=== PATIENT | female | born 1980 | race Hispanic/Latino ===

== ENCOUNTER 2019-03-20 17:53 | Inpatient (IN) ==
[2019-03-20] MEDS ORDERED: STADOL IV PRN ×2 (18:02)
[2019-03-20] MEDS: LR 1,000 ML IV SCH (19:45)
[2019-03-20 20:23] LABS: BASO# 0.02 X1000 (0.0-0.2); BASO% 0.2 % (0.0-0.8); EOS# 0.34 X1000 (0.0-0.7); EOS% 2.8 % (0.0-10.0); HEMATOCRIT 41.8 % (37.0-47.0); IMM GRAN# 0.04 X1000 (0.0-0.04); IMM GRAN% 0.3 % (0.0-0.5); LYMPH# 3.59 X1000 (1.2-3.4); LYMPH% 29.5 % (20.5-51.1); MCH 32.5 PG (27-31); MCHC 33.5 g/dL (33-37); MONO# 0.64 X1000 (0.11-0.59); MONO% 5.3 % (1.7-9.3); MPV 10.5 FL (7.4-10.4); NEUT# 7.54 X1000 (1.4-6.5); NEUT% 61.9 % (42.2-75.2); PLT 280 X1000 (130-400); RBC 4.31 XMIL (4.2-5.4); RDW 12.6 % (11.5-14.5); WBC 12.17 X1000 (4.8-10.8)
[2019-03-20 20:47] LABS: AGAP 17; ALKALINE PHOSPHATASE 109 U/L (32-104); BUN 10 mg/dL (8-22); CALCIUM 10.7 mg/dL (8.8-10.2); CHLORIDE 99 mmol/L (98-107); COSMO 284; CREATININE 0.5 mg/dL (0.5-0.9); ESTIMATED GFR > 60; GLUCOSE 229 mg/dL (70-104); GOT 82 U/L (10-30); GPT 67 U/L (10-36); POTASSIUM 3.9 mmol/L (3.5-5.1); SODIUM 139 mmol/L (136-145); TCO2 24 mmol/L (25-35); TOTAL PROTEIN 8.7 g/dL (6.3-8.3)
[2019-03-20] MEDS ORDERED: TRANDATE PO SCH (21:00)
[2019-03-20] MEDS ORDERED: CYTOTEC VAG SCH (21:00)
[2019-03-20] MEDS ORDERED: GLUCOPHAGE PO ONE (21:30)
[2019-03-20] MEDS ORDERED: HUMALOG (PARKWAY) SUBQ ONE ×2 (21:31→21:35)
[2019-03-20] MEDS ORDERED: LANTUS INSULIN SUBQ ONE (21:55)
[2019-03-20] MEDS: CYTOTEC VAG SCH (22:04)
[2019-03-20] MEDS: TRESIBA FLEXTOUCH U-100 SUBQ SCH (22:34)
--- NOTE | 2019-03-21 04:02 | HISTORY AND PHYSICAL ---
HISTORY OF PRESENT ILLNESS: A 38-year-old, -0-1-2 at 16 weeks by 8 week 5 day ultrasound, admitted for a missed AB. This is a patient of Dr. Rodriguez that was admitted due to a formal ultrasound done in the clinic with findings of no cardiac activity noted on 03/19/2019. The patient denied of any vaginal bleeding or leakage of fluid. The patient does report of some cramping and some nausea early in the day, that has subsequently resolved. The patient has a history significant of type 2 diabetes and is currently on metformin 1000 b.i.d. and degludec 20 units daily. She also has history of hypertension, in which she is taking labetalol 100 mg b.i.d. The patient reports taking lisinopril daily prior to . PAST MEDICAL HISTORY: 1. Diabetes mellitus. 2. Hypertension. PAST SURGICAL HISTORY: 1. section x2. 2. Open left oophorectomy for "ovarian cyst." 3. D and C (per records). OBSTETRICAL HISTORY: SAB x1. History of x2, both term deliveries. First at 39 weeks, 9 pounds 9 ounces female. Second at 40 weeks, 11 pounds 5 ounces female. GYNECOLOGICAL HISTORY: Denied of STDs or HIV. Denies of any abnormal Pap smears. She does not recall the last Pap smear results. SOCIAL HISTORY: Denied of tobacco, illicit drug use, or alcohol use. FAMILY HISTORY: Reports mother has a history of diabetes mellitus. Children, both healthy. Mother . MEDICATIONS: Labetalol 100 b.i.d., vitamin daily, and metformin 1000 mg b.i.d., insulin Degludec 20 units at bedtime. REVIEW OF SYSTEMS: Negative. PHYSICAL EXAMINATION/OBJECTIVE: Vital Signs: Temperature 96.9 degrees, heart rate 83, respirations 18, blood pressure 107/64, weight 83 kg, height 5 feet 4 inches. General: No apparent distress. Cardiovascular: Regular rate and rhythm. Pulmonary: Clear to auscultation bilaterally. Abdomen: Soft, nontender to palpation, and obese. Well healed prior scars. Pelvic: Deferred for now. Extremities: No lower extremity tenderness to palpation. IMAGING: Bedside ultrasound, posterior placenta, fetus in breech presentation. No cardiac activity noted. LABS: RPR nonreactive. Gonorrhea and chlamydia negative. Hep B surface antigen nonreactive. Hep C antibody nonreactive. HIV 1, 2 antibody nonreactive. Rubella immune. Rh positive, antibody screen negative. LABORATORY DATA: White blood cell count 12.17, hemoglobin 14, hematocrit 41.8, and platelet 280,000. Glucose 229, ALT 67, AST 82. Creatinine 0.5, BUN 10. Sodium 139, potassium 3.9, chloride 99. RPR nonreactive. ASSESSMENT AND PLAN: A 38yo at 16 weeks by an 8 week 5 day ultrasound with: 1. Missed . - I discussed the possible management options for a missed , which includes expectant, medical and surgical management. Risks and benefits of each discussed in depth with the patient. I discussed that given her history of 2 prior C-sections, there is a theoretical risk of a possible uterine rupture with medical management, which may require an emergent laparotomy with repair and possible hysterectomy. In addition, there is possibility of failed medical management, which may require subsequent D&C. In regards to surgical management, the risks of dilatation and curettage discussed with the patient, including bleeding, infection, injury to surrounding organs, and need for hysterectomy. The patient expressed understanding. All questions answered. The patient desired for medical management at this time. -Given patient having a history of 2 prior sections, recommend misoprostol dose at 400 mg per vagina q.6 hours, and to monitor for signs or symptoms of possible uterine rupture. -The patient may receive pain medication via IV epidural p.r.n., [employer] p.r.n. -lithographic general worker consultation ordered after delivery of the missed . 2. Diabetes mellitus. -Metformin 1000 mg b.i.d., and degludec 20U QHS ordered. -Patient was treated acutely with 10U Humalog for elevated finger stick glucose. Also, degludec was not available overnight per pharmacy, and therefore patient was given 10U Lantus -AC + HS glucose checks 3. Hypertension. -BP wnl -Will continue labetalol 100 mg b.i.d. 4. Transaminitis -Unclear cause -Hep C ab in non-reactive per records -Limit use of medications that get metabolized in the liver (e.g Tylenol) cc: MD SABRA Pryor III
[2019-03-21] MEDS ORDERED: PITOCIN 30 UNITS/NS 30 UNIT/500 ML IV.SOLN ONE (04:42)
[2019-03-21] MEDS: CYTOTEC VAG SCH (05:35)
[2019-03-21] MEDS ORDERED: HEMABATE ONE (05:40)
[2019-03-21 06:00] LABS: BASO# 0.02 X1000 (0.0-0.2); BASO% 0.2 % (0.0-0.8); EOS# 0.13 X1000 (0.0-0.7); HEMOGLOBIN 11.5 g/dL (12.0-16.0); IMM GRAN# 0.03 X1000 (0.0-0.04); IMM GRAN% 0.2 % (0.0-0.5); LYMPH# 1.98 X1000 (1.2-3.4); LYMPH% 15.1 % (20.5-51.1); MCHC 33.8 g/dL (33-37); MCV 97.7 FL (81-99); MONO# 0.44 X1000 (0.11-0.59); MONO% 3.4 % (1.7-9.3); MPV 10.1 FL (7.4-10.4); NEUT# 10.48 X1000 (1.4-6.5); NEUT% 80.1 % (42.2-75.2); PLT 293 X1000 (130-400); RBC 3.48 XMIL (4.2-5.4); RDW 12.3 % (11.5-14.5); WBC 13.08 X1000 (4.8-10.8)
[2019-03-21] MEDS: LR 1,000 ML IV SCH (06:07)
[2019-03-21] MEDS ORDERED: NS 1,000 ML IV SCH (06:15)
[2019-03-21] MEDS ORDERED: MOTRIN PO PRN (06:36)
[2019-03-21] MEDS ORDERED: MINERAL OIL PO PRN (06:36)
[2019-03-21] MEDS ORDERED: CYTOTEC PO PRN (06:36)
[2019-03-21] MEDS ORDERED: PITOCIN IM PRN (06:36)
[2019-03-21] MEDS ORDERED: XYLOCAINE-MPF 1% INJ PRN (06:36)
[2019-03-21] MEDS ORDERED: BENADRYL PO PRN (06:36)
[2019-03-21] MEDS ORDERED: PERI MEDS (DERMOPLAST/NUPERCAINAL/TUCKS) MISC PRN (06:36)
[2019-03-21] MEDS ORDERED: OXY IR PO PRN (06:38)
[2019-03-21] MEDS ORDERED: COLACE PO PRN (06:38)
[2019-03-21] MEDS ORDERED: HUMALOG (PARKWAY) SUBQ ONE ×4 (07:51→21:05)
--- NOTE | 2019-03-21 08:03 | OB/GYN PROGRESS NOTE ---
Progress Note OB - . Patient Problems: Current Active Problems Problem Status Onset Missed Acute History of 2 sections Acute Diabetes mellitus Acute Hypertension Acute OB Progress Note: Vital Signs - 24 hr 03/20/19 20:00 03/20/19 23:40 03/21/19 06:34 Temperature 96.9 F L 97.2 F L 98.0 F Pulse Rate 83 83 85 Respiratory Rate 18 18 Blood Pressure 107/64 101/57 91/53 O2 Sat by Pulse Oximetry 98 97 100 03/21/19 06:49 Temperature 98.2 F Pulse Rate 82 Respiratory Rate 20 Blood Pressure 91/53 O2 Sat by Pulse Oximetry 100 Laboratory Results - last 24 hr 03/20/19 03/20/19 03/20/19 19:45 19:45 19:45 WBC 12.17 H RBC 4.31 Hgb 14.0 Hct 41.8 MCV 97.0 MCH 32.5 H MCHC 33.5 RDW Std Deviation 12.6 Plt Count 280 MPV 10.5 H Immature Gran % (Auto) 0.3 Neut % (Auto) 61.9 Lymph % (Auto) 29.5 [place] % (Auto) 5.3 Eos % (Auto) 2.8 Baso % (Auto) 0.2 Immature Gran # (Auto) 0.04 Neut # (Auto) 7.54 H Lymph # (Auto) 3.59 H [place] # (Auto) 0.64 H Eos # (Auto) 0.34 Baso # (Auto) 0.02 Sodium Potassium Chloride Carbon Dioxide Anion Gap BUN Creatinine Estimated GFR/1.73 m2 BUN/Creatinine Ratio Glucose POC Glucose Calculated Osmolality Calcium Total Bilirubin AST ALT Alkaline Phosphatase Total Protein Albumin Globulin Albumin/Globulin Ratio RPR NON-REACTIVE Blood Type A POSITIVE Antibody Screen NEGATIVE Crossmatch See Detail 03/20/19 03/20/19 03/21/19 19:45 21:17 01:28 WBC RBC Hgb Hct MCV MCH MCHC RDW Std Deviation Plt Count MPV Immature Gran % (Auto) Neut % (Auto) Lymph % (Auto) [place] % (Auto) Eos % (Auto) Baso % (Auto) Immature Gran # (Auto) Neut # (Auto) Lymph # (Auto) [place] # (Auto) Eos # (Auto) Baso # (Auto) Sodium 139 Potassium 3.9 Chloride 99 Carbon Dioxide 24 L Anion Gap 17 BUN 10 Creatinine 0.5 Estimated GFR/1.73 m2 > 60 BUN/Creatinine Ratio 20 Glucose 229 H POC Glucose 205 H D 77 D Calculated Osmolality 284 Calcium 10.7 H Total Bilirubin 0.40 AST 82 H ALT 67 H Alkaline Phosphatase 109 H Total Protein 8.7 H Albumin 5.0 Globulin 4.0 Albumin/Globulin Ratio 1.0 RPR Blood Type Antibody Screen Crossmatch 03/21/19 03/21/19 05:41 05:54 WBC 13.08 H RBC 3.48 L Hgb 11.5 L D Hct 34.0 L MCV 97.7 MCH 33.0 H MCHC 33.8 RDW Std Deviation 12.3 Plt Count 293 MPV 10.1 Immature Gran % (Auto) 0.2 Neut % (Auto) 80.1 H Lymph % (Auto) 15.1 L [place] % (Auto) 3.4 Eos % (Auto) 1.0 Baso % (Auto) 0.2 Immature Gran # (Auto) 0.03 Neut # (Auto) 10.48 H Lymph # (Auto) 1.98 [place] # (Auto) 0.44 Eos # (Auto) 0.13 Baso # (Auto) 0.02 Sodium Potassium Chloride Carbon Dioxide Anion Gap BUN Creatinine Estimated GFR/1.73 m2 BUN/Creatinine Ratio Glucose POC Glucose 263 H D Calculated Osmolality Calcium Total Bilirubin AST ALT Alkaline Phosphatase Total Protein Albumin Globulin Albumin/Globulin Ratio RPR Blood Type Antibody Screen Crossmatch 38 yo PPD#0 s/p of IUFD at 15w6d with PPH, DM-2, CHTN, AMA, Hx c/s x 2 Patient seen and examined. Currently receiving unit #1/2 of PRBCs for PPH and hypotension. She states dizziness/lightheadedness has resolved. Vaginal bleeding is minimal currently. She delivered this AM, placenta delivered as well. EBL was approx 1500. She denies any pain, but states she is tired. BG 269 this AM prior to breakfast. She was previously seeing Kiara Sanchez for diabetes control prior to . She was taking Farxiga, but stopped in when she became . She is currently taking a long-acting insulin and metformin 1000BID. Discussed importance of blood glucose control. Discussed contraception and she is considering taking a pill. Physical Exam-General - PHYSICAL EXAM-ADULT Initial Vital Signs Reviewed: Yes - CONSTITUTIONAL General Appearance: appears well, alert, no apparent distress - EYES Eyes: PERRL/EOMI - HEAD, EARS, NOSE, MOUTH & THROAT HENMT: normocephalic/atraumatic - RESPIRATORY Respiratory: lungs clear, normal breath sounds - CARDIOVASCULAR Cardiovascular: regular rate, rhythm - GASTROINTESTINAL (ABDOMEN) Abdominal Exam: normal bowel sounds, non tender, soft - MUSCULOSKELETAL Extremity: normal range of motion, non-tender - PSYCHIATRIC Psych/Mental Status: normal mood/affect Assessment/Plan - Assessment/Plan Assessment: 38 yo PPD#0 s/p of IUFD at 15w6d with PPH, DM-2, CHTN, AMA, Hx c/s x 2 1. Receiving 2 u PRBCs currently, will check H/H after transfusion. Vitals stable 2. BG 269 this AM, will treat with 8 u humalog and check a 2hr PP BG after breakfast 3. BP 90s/60s will hold labetalol today due to blood loss and hypotension 4. Discussed contraception, considering pill 5. Blood Type A+, no Rhogam indicated
[2019-03-21] MEDS: PRECARE PO SCH (08:31)
[2019-03-21] MEDS: GLUCOPHAGE PO SCH ×2 (08:32→17:07)
[2019-03-21] MEDS: TRANDATE PO SCH ×2 (08:33→21:32)
--- NOTE | 2019-03-21 09:45 | OPERATIVE NOTE ---
PROCEDURE DATE: 03/21/2019 PREOPERATIVE DIAGNOSIS: A 38-year-old G4, P2 0-1-2 at 16 weeks and 1 day with a missed AB. POSTOPERATIVE DIAGNOSIS: A 38-year-old G4, P2 0-2-2 at 16 weeks and 1 day s/p spontaneous ATTENDING: Patrica Lora PROCEDURE: Vaginal after section () via medical induced TRANSFUSIONS: 2 units of packed red blood cells ordered after delivery of products of conception. IMPLANTS: Implants none. SPECIMENS REMOVED: Products of conception including fetus. DRAINS: Bladder drained after delivery of baby. EBL: Approximately 1500 mL. PROCEDURE DETAILS: A 38-year-old G 4, P 201 2 at 16 weeks and 1 day, admitted for a missed AB, opted for medical management. The patient had a history significant of 2 prior sections. The patient's induction will was initiated with 400 mcg of misoprostol vaginally. The patient then had significant vaginal bleeding in which shortly after, her fetus was delivered. Misoprostol 400mcg was given orally to facilitate delivery of the rest of products of conception. Shortly after, the placenta was evacuated. After delivery of placenta, the patient's bleeding had subsided and was significantly reduced. The patient's blood pressure was within normal limits during majority of the delivery. Shortly after completion of delivery, however, the patient began feeling dizzy and weak with her blood pressure noted to be hypotensive. Her heart rate, however, was within normal range. Two units of packed red blood cells was ordered to be given emergently. IV fluid bolus was initiated and patient was placed in reverse Trendelenburg position. After initiation of the intervention, patient symptoms of dizziness resolved. Products of conception sent to pathology. No cervical/vaginal lacerations noted; perineum intact. Sponge count correct x2. Patient tolerated well. cc: MD SABRA Pryor III
[2019-03-21 12:22] LABS: BASO# 0.02 X1000 (0.0-0.2); BASO% 0.1 % (0.0-0.8); EOS# 0.08 X1000 (0.0-0.7); EOS% 0.5 % (0.0-10.0); HEMATOCRIT 33.9 % (37.0-47.0); HEMOGLOBIN 11.5 g/dL (12.0-16.0); IMM GRAN# 0.03 X1000 (0.0-0.04); IMM GRAN% 0.2 % (0.0-0.5); LYMPH# 2.71 X1000 (1.2-3.4); LYMPH% 18.2 % (20.5-51.1); MCH 31.9 PG (27-31); MCHC 33.9 g/dL (33-37); MCV 93.9 FL (81-99); MONO# 0.65 X1000 (0.11-0.59); MONO% 4.4 % (1.7-9.3); MPV 10.1 FL (7.4-10.4); NEUT# 11.41 X1000 (1.4-6.5); NEUT% 76.6 % (42.2-75.2); PLT 239 X1000 (130-400); RBC 3.61 XMIL (4.2-5.4); RDW 14.2 % (11.5-14.5)
[2019-03-21] MEDS ORDERED: LANTUS INSULIN SUBQ ONE (21:05)
[2019-03-21] MEDS: TRESIBA FLEXTOUCH U-100 SUBQ SCH (21:32)
[2019-03-22 05:11] LABS: BASO# 0.04 X1000 (0.0-0.2); BASO% 0.3 % (0.0-0.8); EOS# 0.41 X1000 (0.0-0.7); EOS% 3.2 % (0.0-10.0); HEMOGLOBIN 11.1 g/dL (12.0-16.0); IMM GRAN# 0.05 X1000 (0.0-0.04); IMM GRAN% 0.4 % (0.0-0.5); LYMPH# 4.15 X1000 (1.2-3.4); LYMPH% 32.2 % (20.5-51.1); MCH 30.7 PG (27-31); MCHC 32.6 g/dL (33-37); MCV 93.9 FL (81-99); MONO# 0.59 X1000 (0.11-0.59); MONO% 4.6 % (1.7-9.3); MPV 10.5 FL (7.4-10.4); NEUT# 7.65 X1000 (1.4-6.5); NEUT% 59.3 % (42.2-75.2); PLT 226 X1000 (130-400); RBC 3.62 XMIL (4.2-5.4); RDW 14.9 % (11.5-14.5); WBC 12.89 X1000 (4.8-10.8)
[2019-03-22] MEDS: TRANDATE PO SCH (08:23)
[2019-03-22] MEDS: GLUCOPHAGE PO SCH (08:37)
[2019-03-22] MEDS: PRECARE PO SCH (08:38)
--- NOTE | 2019-03-22 10:07 | OB/GYN PROGRESS NOTE ---
- Subjective 38 yo PPD#1 s/p of IUFD at 15w6d with PPH, DM-2, CHTN, AMA, Hx c/s x 2 Patient seen and examined, currently w/o complaints. Status post 2 units of PRBCs for PPH and hypotension. She denies dizziness/lightheadedness/SOB/CP. Vaginal bleeding is minimal currently. EBL was approx 1500. She is currently taking a Lantus 15 units HS and metformin 1000 BID. OB Physical Exam Vital Signs - 8 hr 03/22/19 05:00 03/22/19 08:01 Temperature 96.4 F L 96.6 F L Pulse Rate 78 83 Respiratory Rate 18 16 Blood Pressure 94/57 122/63 O2 Sat by Pulse Oximetry 97 97 - CONSTITUTIONAL General Appearance: appears well, alert, no apparent distress - RESPIRATORY Respiratory: lungs clear, normal breath sounds - CARDIOVASCULAR Cardiovascular: regular rate, rhythm - GASTROINTESTINAL (ABDOMEN) Abdominal Exam: non tender, soft - GENITOURINARY Female Genitalia/Pelvic Exam: external exam normal (decreased lochia) - MUSCULOSKELETAL Extremity: non-tender, no calf tenderness - PSYCHIATRIC Psych/Mental Status: normal mood/affect, oriented x 3 Active Medications Generic Name Dose Route Start Last Admin Trade Name Freq PRN Reason Stop Dose Admin Benzocaine 1 each 03/21/19 06:36 Tg Meds (Dermoplast/Nupercainal/Tucks) MISC 3-4XDAY PRN PRN episiotomy/hemorrhoids Diphenhydramine HCl 25 mg 03/21/19 06:36 Benadryl PO Q4H PRN PRN Itching Docusate Sodium 100 mg 03/21/19 06:38 Colace PO BID PRN PRN CONSTIPATION Lactated Ringer's 1,000 mls @ 0 mls/hr 03/20/19 18:15 03/21/19 06:07 Lr IV 999 mls/hr .Q0M PRIYA Administration As Directed Sodium Chloride 1,000 mls @ 0 mls/hr 03/21/19 06:15 03/21/19 06:25 Ns IV 42 mls/hr .Q0M PRIYA Administration As Directed Ibuprofen 800 mg 03/21/19 06:36 03/21/19 21:11 Motrin PO 800 mg Q8H PRN PRN Administration cramping Insulin Degludec 20 unit 03/20/19 21:45 03/21/19 21:32 Tresiba Flextouch U-100 SUBQ Not Given QHS [facility] Labetalol HCl 100 mg 03/21/19 06:41 03/22/19 08:23 Trandate PO Not Given BID PRIYA Lidocaine HCl 30 ml 03/21/19 06:36 Xylocaine-Mpf 1% INJ PRN PRN Perineal repair Metformin HCl 1,000 mg 03/21/19 08:00 03/22/19 08:37 Glucophage PO 1,000 mg BID CC PRIYA Administration Mineral Oil 30 ml 03/21/19 06:36 Mineral Oil PO PRN PRN Perineal massage Misoprostol 800 microgm 03/21/19 06:36 Cytotec PO PRN PRN Severe bleeding Oxycodone HCl 5 mg 03/21/19 06:38 Oxy Ir PO Q6H PRN PRN Breakthrough Pain Oxytocin 20 unit 03/21/19 06:36 Pitocin IM PRN PRN Severe bleeding Multivit/Folic Acid/Iron 1 each 03/21/19 09:00 03/22/19 08:38 Precare PO 1 each DAILY PRIYA Administration Laboratory Results - last 24 hr 03/20/19 03/21/19 03/21/19 19:45 07:45 10:26 WBC RBC Hgb Hct MCV MCH MCHC RDW Std Deviation Plt Count MPV Immature Gran % (Auto) Neut % (Auto) Lymph % (Auto) [place] % (Auto) Eos % (Auto) Baso % (Auto) Immature Gran # (Auto) Neut # (Auto) Lymph # (Auto) [place] # (Auto) Eos # (Auto) Baso # (Auto) POC Glucose 269 H 242 H Crossmatch See Detail 03/21/19 03/21/19 03/21/19 12:17 14:02 18:54 WBC 14.90 H RBC 3.61 L Hgb 11.5 L Hct 33.9 L MCV 93.9 MCH 31.9 H MCHC 33.9 RDW Std Deviation 14.2 Plt Count 239 MPV 10.1 Immature Gran % (Auto) 0.2 Neut % (Auto) 76.6 H Lymph % (Auto) 18.2 L [place] % (Auto) 4.4 Eos % (Auto) 0.5 Baso % (Auto) 0.1 Immature Gran # (Auto) 0.03 Neut # (Auto) 11.41 H Lymph # (Auto) 2.71 [place] # (Auto) 0.65 H Eos # (Auto) 0.08 Baso # (Auto) 0.02 POC Glucose 150 H 202 H Crossmatch 03/21/19 03/21/19 03/22/19 20:42 22:50 04:58 WBC 12.89 H RBC 3.62 L Hgb 11.1 L Hct 34.0 L MCV 93.9 MCH 30.7 MCHC 32.6 L RDW Std Deviation 14.9 H Plt Count 226 MPV 10.5 H Immature Gran % (Auto) 0.4 Neut % (Auto) 59.3 Lymph % (Auto) 32.2 [place] % (Auto) 4.6 Eos % (Auto) 3.2 Baso % (Auto) 0.3 Immature Gran # (Auto) 0.05 H Neut # (Auto) 7.65 H Lymph # (Auto) 4.15 H [place] # (Auto) 0.59 Eos # (Auto) 0.41 Baso # (Auto) 0.04 POC Glucose 182 H 118 H Crossmatch 03/22/19 07:25 WBC RBC Hgb Hct MCV MCH MCHC RDW Std Deviation Plt Count MPV Immature Gran % (Auto) Neut % (Auto) Lymph % (Auto) [place] % (Auto) Eos % (Auto) Baso % (Auto) Immature Gran # (Auto) Neut # (Auto) Lymph # (Auto) [place] # (Auto) Eos # (Auto) Baso # (Auto) POC Glucose 141 H Crossmatch - Assessment & Plan (1) Diabetes mellitus Status: Chronic (2) Hypertension Status: Resolved (3) Missed Status: Resolved - Progress Note Disposition: 38 yo PPD#1 s/p of IUFD at 15w6d with PPH, DM-2, CHTN, AMA, Hx c/s x 2 1. s/p 2 u PRBCs, H/H stable. Vitals stable 2. Monitor BS closely. Con't Lantus 15 units hs and metformin 1000 BID. Will consider increasing Lantus if BS remain elevated 3. BP stable. Labetalol with holding parameters 4. consider d/c home today pending BS results
[2019-03-22] MEDS ORDERED: LANTUS INSULIN SUBQ ONE (11:37)
[2019-03-22] MEDS ORDERED: HUMALOG (PARKWAY) SUBQ ONE (11:39)
[2019-03-22 12:45] VITALS: BP 115/70
== END 2019-03-22 16:00 | disposition home or self-care (01) | DRG 770 ==
LOC: P.LD 17:53
PROVIDERS: ADMIT Obstetrics & Gynecology; ATTEND Obstetrics & Gynecology